=== PATIENT | female | born 1980 | race Hispanic/Latino ===

== ENCOUNTER 2017-06-28 20:40 | Emergency (ER) | payer BC ==
--- NOTE | 2017-06-28 21:44 | C.PDOC ---
History Of Present Illness 36 year old female presents to the ED for evaluation of swelling to her left foot which began earlier today. Patient notes the area is painful when she tries to walk. Patient also states she had an ingrown toenail infection and received treatment from her PMD 3 weeks ago. Patient denies fever, chills, direct trauma/injury to the affected area or recent falls or twisting injuries to the foot, extremity numbness/weakness. Time Seen by Provider: 06/28/17 21:10 Chief Complaint (Nursing): Lower Extremity Problem/Injury History Per: Patient History/Exam Limitations: no limitations Onset/Duration Of Symptoms: Hrs Current Symptoms Are (Timing): Still Present Additional History Per: Patient - Ankle/Foot Description Of Injury: denies: Fell, Struck With Object, Struck Against Object, Twisted, Laceration Past Medical History Reviewed: Historical Data, Nursing Documentation, Vital Signs Vital Signs: Last Vital Signs Temp 98 F 06/28/17 22:00 Pulse 89 06/28/17 22:00 Resp 18 06/28/17 22:00 BP 132/84 06/28/17 22:00 Pulse Ox 97 06/28/17 22:05 - Medical History PMH: No Chronic Diseases Surgical History: No Surg Hx Family History: States: Unknown Family Hx - Social History Hx Alcohol Use: Yes Hx Substance Use: No - Immunization History Hx Tetanus Toxoid Vaccination: Yes Hx Influenza Vaccination: No Hx Pneumococcal Vaccination: No Review Of Systems Constitutional: Negative for: Fever, Chills Musculoskeletal: Positive for: Foot Pain (left, with swelling ) Neurological: Negative for: Weakness, Numbness Physical Exam - Physical Exam Appears: Non-toxic, No Acute Distress Skin: Warm, Dry, Ecchymosis (to left lateral dorsal foot ) Extremity: Normal ROM, Tenderness (mild, to left lateral dorsal foot ), Capillary Refill (less than 2 seconds ), Swelling (to left lateral dorsal foot ) Pulses: Left Dorsalis Pedis: Normal Neurological/Psych: Oriented x3, Normal Speech, Normal Cognition Gait: With Assistance ED Course And Treatment O2 Sat by Pulse Oximetry: 97 (on RA) Pulse Ox Interpretation: Normal Medical Decision Making Medical Decision Making: Impression: 36 year old female with left foot pain and swelling Plan: * left foot XR * reassess and disposition Progress: left foot XR ordered and reviewed. suspected fx to 5th metatarsal. Posterior orthoglass splint applied by SHARDA Ness and patient given instructions on crutch walking. Discussed results with patient and advised follow up with podiatry Disposition Counseled Patient/Family Regarding: Studies Performed, Diagnosis, Need For Followup - Disposition Referrals: Podiatry Clinic [Outside] Lolita Leonard DPM [Staff Provider] - Disposition: HOME/ ROUTINE Disposition Time: 21:42 Condition: STABLE Additional Instructions: Information given regarding preliminary nature of x-ray reading, with possibility that a fracture not initially detected in the ED may be found on final reading, with subsequent notification. Patient was therefore told that close follow up care for further evaluation is mandatory with podiatry Instructions: SUSPECTED FRACTURE (ED) Forms: [employer] ([place]) - Clinical Impression Clinical Impression: Stress fracture of foot - PA / [employer] / Resident Statement MD/DO has reviewed & agrees with the documentation as recorded. - Scribe Statement The provider has reviewed the documentation as recorded by the Scribe (Della Chauhan) All medical record entries made by the Scribe were at my direction and personally dictated by me. I have reviewed the chart and agree that the record accurately reflects my personal performance of the history, physical exam, medical decision making, and the department course for this patient. I have also personally directed, reviewed, and agree with the discharge instructions and disposition.
[2017-06-28 22:01] VITALS: BP 132/84; PULSE 89; RESP 18; TEMP 98
[2017-06-28 22:03] VITALS: O2SAT 97
--- NOTE | 2017-06-29 08:19 | RAD ---
PROCEDURE: Left Foot Radiographs. HISTORY: swelling and pain COMPARISON: None. FINDINGS: BONES: There is a nondisplaced fracture through the base of the 5th metatarsal bone left foot which is may be articular. No additional fracture identified. No dislocation. JOINTS: Normal. SOFT TISSUES: [id number] local soft tissue edema is appreciated in the frontal view lateral to the fracture site 5th metatarsal bone. OTHER FINDINGS: Valgus deformity distal interphalangeal joint 2nd digit. IMPRESSION: A nondisplaced fracture of the base of the 5th metatarsal bone is appreciated which may be articular. No dislocation. [id number] local soft tissue edema identified related.
== END 2017-06-28 22:01 | disposition home or self-care (01) ==
LOC: C.ER 20:40
DX: M84.375A Stress fracture, left foot, initial encounter for fracture (principal); X58.XXXA Exposure to other specified factors, initial encounter